=== PATIENT | female | born 1985 | race Caucasian/White ===

== ENCOUNTER 2019-12-29 05:55 | Inpatient (IN) | payer MEDICAID ==
[~2019-12-29] VITALS: Ht 157.5 cm; Wt 43.5 kg
[2019-12-29 06:00] VITALS: BP 120/80
--- NOTE | 2019-12-29 06:01 | NUR ---
PT AMBULATED TO ER BED 11
--- NOTE | 2019-12-29 06:05 | NUR ---
34 Y/O FEMALE C/O LEFT BREAST PAIN FROM MULTIPLE LUMPS WITH PAIN 8/10. PT HAS HAD THE LUMPS FOR 6 MONTHS AND PAIN GOT WORSE 4 MONTHS AGO. LEFT BREAST ENLARGED/HARD UPON PALP/-WARMTH UPON PALP. PT STATES HAD IMAGING DONE AT ANOTHER FACILITY, WITH NEGATIVE RESULTS. PT HAD A BIOPSY ON WEDNESDAY WITH NEGATIVE RESULTS. PT SEEN BY YESTERDAY AND ASPIRATION OF GREEN FLUID WAS OBTAINED FROM LEFT BREAST MASS. PT STATED REFERRED PT TO ER TO BE ADMITTED FOR OR PROCEDURE. PT DENIES ANY TRAUMA. PT STATES FINISHED AN ANTIOBIOTIC YESTERDAY . DENIES N/V/D; SKIN IS PINK/WARM/DRY; AAOX4 WITH EVEN AND STEADY GAIT; PT DENIES ANY FEVER, CP, SOB, OR COUGH AT THIS TIME; VSS; PATIENT POSITIONED FOR COMFORT; HOB ELEVATED; BEDRAILS UP X1; BED DOWN AND LOCKED. ER MD MADE AWARE OF PT STATUS. PT PLACED IN GOWN. MEDICAL HX: PT DENIES NKA
--- NOTE | 2019-12-29 06:14 | NUR ---
ERMD BEDSIDE EVALUATING PT
--- NOTE | 2019-12-29 06:40 | NUR ---
LABS DRAWN AT BEDSIDE FROM IV START AND LAB PICKED THEM UP
[2019-12-29 06:57] LABS: BASOPHILS % (AUTO) 0.4 % (0.0-2.0); EOSINOPHILS # (AUTO) 0.1 K/uL (0-0.4); HEMATOCRIT 40.3 % (36-48); HEMOGLOBIN 13.6 g/dL (12.0-16.0); LYMPHOCYTES # (AUTO) 1.8 K/uL (2.5-16.5); LYMPHOCYTES % (AUTO) 24.9 % (20.5-51.1); MEAN CORPUSCULAR HEMOGLOBIN 30 pg (27-31); MEAN CORPUSCULAR HGB CONC 34 g/dL (33-37); MEAN CORPUSCULAR VOLUME 87.7 fL (80-94); MONOCYTES # (AUTO) 0.5 K/uL (0.8-1.0); NEUTROPHILS # (AUTO) 4.8 K/uL (1.8-7.7); NEUTROPHILS % (AUTO) 66.7 % (42.2-75.2); PLATELET COUNT (AUTO) 358 K/uL (140-450); RED CELL DISTRIBUTION WIDTH 13.8 % (11.6-13.7); WHITE BLOOD COUNT (AUTO) 7.1 K/uL (4.8-10.8)
[2019-12-29 07:14] LABS: PROTHROMBIN TIME 10.6 secs (10.8-13.4)
--- NOTE | 2019-12-29 07:16 | NUR ---
Pt report given to MARINA JAMA. Transfer of care at this time.
[2019-12-29 07:18] LABS: ALBUMIN 3.6 g/dL (3.4-5.0); ANION GAP 13.1 (8-16); CARBON DIOXIDE 28.5 mmol/L (21-32); CREATININE 0.6 mg/dL (0.6-1.3); POTASSIUM 3.6 mmol/L (3.5-5.1); TOTAL BILIRUBIN 0.4 mg/dL (0.0-1.0)
--- NOTE | 2019-12-29 08:00 | NUR ---
PT RESTING IN BED COMFORTABLY. NO FURTHER NEEDS AT THIS TIME. BED AT LOWEST AND LOCKED, RAILS UP X 1.
--- NOTE | 2019-12-29 08:25 | NUR ---
PT AMBULATED TO RESTROOM TO PROVIDE URINE SAMPLE
[2019-12-29] MEDS ORDERED: ACETAMINOPHEN 325 MG TAB PO PRN (09:05)
[2019-12-29] MEDS ORDERED: FAMOTIDINE 20 MG/2 ML VIAL IV PRN (09:05)
[2019-12-29] MEDS ORDERED: HYDROcodone/APAP 5/325 MG 1 TAB TAB PO PRN ×2 (09:05→12:15)
[2019-12-29] MEDS ORDERED: MORPHINE SULFATE 2 MG/ML SYR IVP PRN (09:05)
[2019-12-29] MEDS ORDERED: DOCUSATE SODIUM 100 MG GELCAP PO PRN (09:05)
[2019-12-29] MEDS ORDERED: LORazepam 2 MG/ML VIAL IM/IVP PRN (09:05)
[2019-12-29] MEDS ORDERED: ONDANSETRON 4 MG/2 ML VIAL IM/IVP PRN (09:05)
[2019-12-29 09:25] VITALS: BP 124/79
--- NOTE | 2019-12-29 09:25 | NUR ---
RECEIVED PATIENT FROM ED NURSE FOR CONTINUITY OF CARE. PATIENT IS AAOX4. MONGOLIAN SPEAKING. RESPIRATIONS EVEN AND UNLABORED. VISIBLE CHEST RISE AND FALL NOTED. ON MEDSURG. PATIENT DENIES ANY SOB OR CHEST PAIN. ABDOMEN SOFT AND NONTENDER. NPO EXCEPT MEDICATIONS DIET. SKIN WARM, DRY, AND INTACT. DX OF LEFT BREAST ABSCESS. BREAST IS REDDENED AND HARD WITH LUMPS. PATIENT STATED SHE HAD BIOPSY A FEW DAYS AGO IN THE SAME BREAST. IV IN THE LEFT AC G 20, SALINE LOCK. IV FLUSHED WELL. NO SIGNS OF INFILTRATION. UNIVERSAL FALL PRECAUTION. AMBULATORY. BED IN LOW POSITION. CALL LIGHT IS WITHIN REACH. WILL CONTINUE TO MONITOR.
--- NOTE | 2019-12-29 09:25 | NUR ---
Patient will be admitted to care of [facility]. Admited to MS. Will go to room 105B. Belongings list completed. Report to PRINCESS GRAY.
--- NOTE | 2019-12-29 09:30 | NUR ---
MRSA NARES SWAB COLLECTED. ALLERGY BAND PLACED.
[2019-12-29] MEDS: LACTOBACILLUS RHAMNOSUS GG 1 EACH CAP PO SCH (09:43)
[2019-12-29] MEDS: NACL 0.9% 1,000 ML IV SCH ×2 (09:43→21:30)
--- NOTE | 2019-12-29 09:43 | NUR ---
HANG NS AT A RATE OF 60 ML/HR. GIVEN PROBIOTIC PO. EXPLAINED MEDICATION. PATIENT VERBALIZED UNDERSTANDING. BED IN LOW POSITION. CALL LIGHT IS WITHIN REACH. WILL CONTINUE TO MONITOR
[2019-12-29 09:48] LABS: APPEARANCE,URINE CLEAR (CLEAR); BILIRUBIN,URINE NEGATIVE (NEGATIVE); BLOOD, URINE NEGATIVE (NEGATIVE); COLOR,URINE YELLOW (YELLOW); LEUKOCYTE ESTERASE ,URINE NEGATIVE (NEGATIVE); NITRITE, URINE NEGATIVE (NEGATIVE); UGLUCOSE NEGATIVE (NEGATIVE)
[2019-12-29 10:05] LABS: BARBITURATE, URINE NEGATIVE ng/ml (NEG <=200); BENZODIAZEPINE, URINE NEGATIVE ng/mL (NEG <=200); CANNABINOID, URINE NEGATIVE ng/mL (NEG <=50); COCAINE, URINE NEGATIVE ng/mL (NEG <=300)
[2019-12-29 10:06] LABS: OPIATE, URINE NEGATIVE ng/mL (NEG <=2000); PHENCYCLIDINE SCREEN,URINE NEGATIVE ng/mL (NEG <=25)
--- NOTE | 2019-12-29 10:40 | NUR ---
PATIENT SIGNED CONSENT FOR LEFT BREAST I&D. DR. BRENNAN EXPLAINED THE RISKS AND BENEFITS TO THE PATIENT.
[2019-12-29] MEDS ORDERED: fentaNYL 0.05 MG/ML VIAL ONE (10:56)
[2019-12-29] MEDS ORDERED: ONDANSETRON 4 MG/2 ML VIAL ONE (10:56)
[2019-12-29] MEDS ORDERED: PROPOFOL 200 MG/20 ML VIAL IV ONE (10:56)
[2019-12-29] MEDS ORDERED: MIDAZOLAM 2 MG/2 ML VIAL ONE (10:56)
[2019-12-29] MEDS ORDERED: DEXAMETHASONE 4 MG/ML VIAL ONE (10:56)
[2019-12-29] MEDS ORDERED: SEVOFLURANE 250 ML BTL INH ONE (10:56)
[2019-12-29] MEDS ORDERED: LIDOCAINE 2% 100 MG/5 ML SYR IVP ONE (10:56)
[2019-12-29] MEDS ORDERED: CLINDAMYCIN 600 MG/4 ML VIAL ONE (10:57)
--- NOTE | 2019-12-29 11:00 | NUR ---
OFF UNIT TO OR FOR I&D OF LEFT BREAST
--- NOTE | 2019-12-29 11:08 | NUR ---
DISCHARGE PLANNING: THIS IS A 34 Y/O FEMALE PATIENT FROM HOME, WHO CAME IN DUE TO LEFT BREAST PAIN X 1 DAY. NO PERTINENT PAST MEDICAL HISTORY. INITIAL DIAGNOSIS OF LEFT BREAST ABSCESS. LEFT BREAST U/S SHOWED 2.9 AND 3.7 HETEROGENOUS STRUCTURE COULD REPRESENT HEMATOMA,ABSCESS OR OTHER COMPLEX CYST/MASS. SURGICAL CONSULT WITH DR. NAM FOR LEFT BREAST ABSCESS IN PLACE. ON CLINDAMYCIN. DC PLAN BACK TO HOME ONCE STABLE. Addendum: 12/29/19 at 1518 by Erika Foster CM DC PLANNING: PATIENT CAN VISIT [facility] [phone] OUT PATIENT. NOTIFIED CHARGE NURSE
[2019-12-29] MEDS: BUPIVACAINE-MPF 0.25% 30 ML VIAL INJ ONE ×2 (11:15→13:16)
[2019-12-29] MEDS ORDERED: BUPIVACAINE-MPF 0.25% 30 ML VIAL INJ ONE (11:16)
[2019-12-29 11:20] LABS: CHOL/HDL RATIO 2.7 (1-4.5); FREE T4 (FREE THYROXINE) 1.03 ng/dL (0.76-1.46); MAGNESIUM 2.1 mg/dL (1.8-2.4); PHOSPHORUS 3.2 mg/dL (2.5-4.9); THYROID STIMULATING HORMONE 2.39 uIU/mL (0.34-3.74)
[2019-12-29] MEDS ORDERED: LACTATED RINGERS 1,000 ML IV SCH (11:37)
[2019-12-29] MEDS ORDERED: HYDROmorphone 1 MG/ML AMP IVP PRN ×2 (11:40→12:15)
[2019-12-29] MEDS ORDERED: MEPERIDINE 25 MG/ML SYR IVP PRN (11:40)
[2019-12-29] MEDS ORDERED: ONDANSETRON 4 MG/2 ML VIAL IVP PRN (11:40)
--- NOTE | 2019-12-29 12:50 | NUR ---
PATIENT RETURNED TO UNIT FROM OR. POST-OP VITALS WILL BE CHECKED
[2019-12-29] MEDS: CLINDAMYCIN 600 MG in DEXTROSE 5% 50 ML IV SCH ×2 (13:10→20:12)
--- NOTE | 2019-12-29 13:15 | NUR ---
HANG CLINDAMYCIN IVPB. EXPLAINED MEDICATION. WILL CONTINUE TO MONITOR.
--- NOTE | 2019-12-29 13:36 | NUR ---
PRIMARY RN CONTINUE TO TEACH WOUND CARE WOUND CARE INSTRUCTIONS FOR S/P I&D LEFT BREAST -PRE-MEDICATED FOR PAIN BEFORE DRESSING CHANGE. -HAND WASHING BEFORE AND AFTER DRESSING CHANGE -REMOVE ABDOMINAL DRESSING AND SOAKED PACKED GAUZES TO WOUND BED WITH NORMAL SALINE(NS) AND REMOVE OLD SOAKED DRESSING. -RINSE LEFT BREAST SURGICAL WOUND WITH NS, PAT DRY, FOLLOWED BY PACKING WITH MOIST NORMAL SALINE FULL ROLL OF KERLIX RAMON, AND COVER WITH DRY ABDOMINAL PAD, SECURE WITH TAPE CHANGE QD AND PRN IF SOILING. -FOLLOW UP WITH SURGEON IN 7 DAYS -MAY DISCHARGE WITH WOUND CARE SUPPLIES Addendum: 12/29/19 at 1401 by Abbe Ellison (Grace) RN ALL ABOVE INFORMATION INSTRUCTED TO PT. AND WRITTEN INSTRUCTIONS WILL BE PROVIDED AT THE TIME OF DISCHARGE,PT. VERBALIZES UNDERSTANDING. DR. BRENNAN NOTIFIED ALL ABOVE INFORMATION.
--- NOTE | 2019-12-29 14:25 | NUR ---
PATIENT HAS BEEN SCREENED AND CATEGORIZED LOW NUTRITION RISK. PATIENT WILL BE SEEN WITHIN 7 DAYS OF ADMISSION. 01/04/[address]
--- NOTE | 2019-12-29 14:28 | NUR ---
PATIENT IS SLEEPING AT THIS TIME BUT OPEN EYES WHEN NAME IS CALLED. BED IN LOW POSITION. CALL LIGHT IS WITHIN REACH. WILL CONTINUE TO MONITOR.
[2019-12-29] MEDS: MORPHINE SULFATE 4 MG/ML SYR IV PRN (14:39)
--- NOTE | 2019-12-29 14:39 | NUR ---
GIVEN MORPHINE FOR 6/10 LEFT BREAST PAIN. EXPLAINED MEDICATION. RESPIRATIONS 16. GIVEN 2 APPLE JUICE BOXES. BED IN LOW POSITION. CALL LIGHT IS WITHIN REACH. WILL CONTINUE TO MONITOR.
--- NOTE | 2019-12-29 15:39 | NUR ---
PAIN REASSESSED. PATIENT STATED 0/10 PAIN. WILL CONTINUE TO MONITOR
--- NOTE | 2019-12-29 15:46 | NUR ---
GIVEN TURKEY SANDWICH AND APPLE JUICE TO THE PATIENT.
[2019-12-29 16:00] VITALS: BP 120/75
--- NOTE | 2019-12-29 16:35 | NUR ---
PATIENT TOLERATED TURKEY SANDWICH. DENIES N/V
--- NOTE | 2019-12-29 17:42 | NUR ---
PATIENT IS AWAKE, WATCHING TV. DENIES PAIN. BED IN LOW POSITION. CALL LIGHT IS WITHIN REACH. WILL CONTINUE TO MONITOR
--- NOTE | 2019-12-29 17:58 | NUR ---
GIVEN INCENTIVE SPIROMETER EDUCATION. PATIENT DEMONSTRATED WELL. VERBALIZED UNDERSTANDING THAT SHE HAS TO USE IT 10X PER HOUR.
--- NOTE | 2019-12-29 18:21 | NUR ---
PATIENT IS EATING DINNER AT THIS TIME.
--- NOTE | 2019-12-29 19:18 | NUR ---
ENDORSED PATIENT TO THE NURSE SHIFT NURSE FOR CONTINUITY OF CARE. PATIENT IS IN STABLE CONDITION.
--- NOTE | 2019-12-29 19:19 | NUR ---
RECEIVED PATIENT IN STABLE CONDITION FROM AM SHIFT NURSE FOR CONTINUITY OF CARE. RESPIRATIONS EVEN, UNLABORED. SKIN WARM/DRY. DRESSING ON LEFT BREAST CLEAN/DRY AND INTACT. IV SITE TO LEFT AC 20G PATENT/INTACT, INFUSING FLUIDS WELL. NO C/O PAIN. NO S/SX ACUTE DISTRESS. CALL LIGHT WITHIN REACH. WILL CONTINUE TO MONITOR.
--- NOTE | 2019-12-29 21:10 | NUR ---
PATIENT CONTINUES IN STABLE CONDITION. NO C/O PAIN. NO S/SX ACUTE DISTRESS. CALL LIGHT WITHIN REACH. WILL CONTINUE TO MONITOR.
--- NOTE | 2019-12-29 23:06 | NUR ---
MADE ROUNDS. PATIENT IS ASLEEP AND IN STABLE CONDITION. NO C/O PAIN. NO S/SX ACUTE DISTRESS. CALL LIGHT WITHIN REACH. WILL CONTINUE TO MONITOR.
[2019-12-30] VITALS: BP 101/65
--- NOTE | 2019-12-30 00:37 | NUR ---
ASSISTED PATIENT TO RESTROOM. NO S/SX ACUTE DISTRESS. ENCOURAGED REPOSITIONING TOLERATED. PAIN LEVEL 2/10, TOLERABLE AT THIS TIME. CALL LIGHT WITHIN REACH. WILL CONTINUE TO MONITOR.
--- NOTE | 2019-12-30 02:44 | NUR ---
PATIENT IS ASLEEP AND RESTING IN BED COMFORTABLY. NO C/O PAIN. NO S/SX ACUTE DISTRESS. CALL LIGHT WITHIN REACH. WILL CONTINUE TO MONITOR.
--- NOTE | 2019-12-30 04:17 | NUR ---
PATIENT CONTINUES IN STABLE CONDITION. NO C/O PAIN. NO S/SX ACUTE DISTRESS. CALL LIGHT WITHIN REACH. WILL CONTINUE TO MONITOR.
[2019-12-30] MEDS: CLINDAMYCIN 600 MG in DEXTROSE 5% 50 ML IV SCH ×3 (04:52→20:07)
--- NOTE | 2019-12-30 05:28 | NUR ---
PATIENT C/O ACHING LEFT BREAST PAIN 02/27. MEDICATED ORDERED. CALL LIGHT WITHIN REACH. WILL CONTINUE TO MONITOR.
--- NOTE | 2019-12-30 06:28 | NUR ---
REASSESSED PATIENT'S PAIN LEVEL AT 0/10. PATIENT IS ASLEEP. NO S/SX ACUTE DISTRESS. CALL LIGHT WITHIN REACH. WILL CONTINUE TO MONITOR.
--- NOTE | 2019-12-30 07:00 | NUR ---
WILL ENDORSE PATIENT TO AM SHIFT NURSE IN STABLE CONDITION FOR CONTINUITY OF CARE.
[2019-12-30 07:05] LABS: BASOPHILS % (AUTO) 0.2 % (0.0-2.0); EOSINOPHILS % (AUTO) 0.2 % (0.0-4.0); HEMATOCRIT 34.2 % (36-48); HEMOGLOBIN 11.4 g/dL (12.0-16.0); LYMPHOCYTES # (AUTO) 2.5 K/uL (2.5-16.5); LYMPHOCYTES % (AUTO) 17.9 % (20.5-51.1); MEAN CORPUSCULAR HEMOGLOBIN 30 pg (27-31); MEAN CORPUSCULAR HGB CONC 33 g/dL (33-37); MEAN CORPUSCULAR VOLUME 88.5 fL (80-94); MONOCYTES # (AUTO) 1.2 K/uL (0.8-1.0); MONOCYTES % (AUTO) 8.5 % (1.7-9.3); NEUTROPHILS # (AUTO) 10.2 K/uL (1.8-7.7); NEUTROPHILS % (AUTO) 73.2 % (42.2-75.2); PLATELET COUNT (AUTO) 304 K/uL (140-450); RED BLOOD CELL COUNT(AUTO) 3.86 MIL/uL (4.20-5.40); RED CELL DISTRIBUTION WIDTH 13.5 % (11.6-13.7); WHITE BLOOD COUNT (AUTO) 13.9 K/uL (4.8-10.8)
--- NOTE | 2019-12-30 07:05 | NUR ---
RECEIVED PT FROM DATA PROCESSING MECHANIC NURSE. PT IS CURRENTLY ALERT, AWAKE, AND LAYING IN BED WITH NO SIGNS OF DISTRESS NOTED. SKIN IS INTACT MINUS LEFT BREAST SURGICAL WOUND. IV IS ASYMPTOMATIC, PATENT AND INFUSING PER ORDER. RESPIRATIONS ARE EVEN AND UNLABORED WITH VISIBLE CHEST RISE AND FALL, ROOM AIR. INCENTIVE SPIROMETER IS AT BEDSIDE. SAFETY MEASURES IN PLACE, CALL LIGHT WITHIN REACH AND WILL CONTINUE TO MONITOR.
[2019-12-30 07:32] LABS: ANION GAP 13.4 (8-16); CARBON DIOXIDE 24.9 mmol/L (21-32); CREATININE 0.6 mg/dL (0.6-1.3); POTASSIUM 3.3 mmol/L (3.5-5.1)
[2019-12-30 07:38] LABS: MAGNESIUM 1.7 mg/dL (1.8-2.4); PHOSPHORUS 3.5 mg/dL (2.5-4.9)
[2019-12-30 08:00] VITALS: BP 103/64
[2019-12-30] MEDS: MORPHINE SULFATE 4 MG/ML SYR IV PRN (08:50)
[2019-12-30] MEDS: NACL 0.9% 1,000 ML IV SCH ×2 (09:16→20:07)
[2019-12-30] MEDS: LACTOBACILLUS RHAMNOSUS GG 1 EACH CAP PO SCH (09:32)
[2019-12-30] MEDS: oxyCODONE/APAP 5/325 MG 1 TAB TAB PO PRN ×2 (09:33→17:07)
--- NOTE | 2019-12-30 09:35 | NUR ---
DR. Mercer COMPLETED DRESSING CHANGE AND REQUESTED FOR PATIENT TO BE PREMEDICATED WITH MORPHINE FOR WOUND PACKING. REQUESTED FOR PT RECEIVE PERCOCET DUE TO PAIN LEVEL. OTHER MEDICATIONS ADMINISTERED PER ORDER AND TOLERATED WELL. PAIN IS CURRENTLY AT 10/10 PER PATIENT. WILL REASSESS IN ONE HOUR.
[2019-12-30] MEDS ORDERED: POTASSIUM CHLORIDE 10 MEQ TABER PO SCH (11:00)
[2019-12-30] MEDS ORDERED: MAG SULF 2000 MG/WATER PREMIX 50 ML IV SCH (11:15)
--- NOTE | 2019-12-30 11:23 | NUR ---
PT IS CURRENTLY ALERT,AWAKE, AND LAYING IN BED. MEDICATIONS ADMINISTERED PER ORDER AND TOLERATED WELL. SAFETY MEASURES IN PLACE AND WILL CONTINUE TO MONITOR.
--- NOTE | 2019-12-30 13:13 | NUR ---
PT IS CURRENTLY EATING LUNCH AT BEDSIDE WITH NO SIGNS OF DISTRESS. MEDICATIONS WERE ADMINISTERED PER ORDER AND TOLERATED WELL. SAFETY MEASURES IN PLACE AND WILL CONTINUE TO MONITOR.
--- NOTE | 2019-12-30 15:23 | NUR ---
PT IS CURRENTLY ALERT AWAKE, AND WATCHING TV IN BED. NO SIGNS OF DISTRESS OR COMPLAINTS OF PAIN AT THIS TIME. SAFETY MEASURES IN PLACE AND WILL CONTINUE TO MONITOR.
[2019-12-30 16:00] VITALS: BP 109/67
--- NOTE | 2019-12-30 17:08 | NUR ---
ADMINISTERED PAIN MEDICATION FOR PAIN OF 5 IN THE LEFT BREAST. WILL REASSESS.
--- NOTE | 2019-12-30 19:05 | NUR ---
ENDORSED TO C2 TACTICAL ANALYSIS TECHNICIAN NURSE. PT IS AWAKE ALERT AND LAYING IN BED WITH NO COMPLAINTS OF PAIN. PT IS IN STABLE CONDITION.
--- NOTE | 2019-12-30 20:00 | NUR ---
ASSISTED PATIENT TO BATHROOM. VOIDED WELL. NO C/O PAIN. NO S/SX ACUTE DISTRESS. CALL LIGHT WITHIN REACH. WILL CONTINUE TO MONITOR.
--- NOTE | 2019-12-30 22:00 | NUR ---
PATIENT IS ON HER CELL PHONE WITH HER FAMILY. NO C/O PAIN. NO S/SX ACUTE DISTRESS. CALL LIGHT WITHIN REACH. WILL CONTINUE TO MONITOR.
[2019-12-31] VITALS: BP 97/51
[2019-12-31] MEDS: oxyCODONE/APAP 5/325 MG 1 TAB TAB PO PRN ×2 (00:04→08:47)
--- NOTE | 2019-12-31 00:04 | NUR ---
PATIENT C/O ACHING LEFT BREAST PAIN 02/27. MEDICATED ORDERED. REPOSITIONED FOR COMFORT. CALL LIGHT WITHIN REACH. WILL CONTINUE TO MONITOR.
--- NOTE | 2019-12-31 01:04 | NUR ---
REASSESSED PAIN LEVEL AT 0/10. PATIENT IS ASLEEP. NO S/SX ACUTE DISTRESS. CALL LIGHT WITHIN REACH. WILL CONTINUE TO MONITOR.
--- NOTE | 2019-12-31 03:00 | NUR ---
PATIENT IS ASLEEP AND IN STABLE CONDITION. NO C/O PAIN. NO S/SX ACUTE DISTRESS. CALL LIGHT WITHIN REACH. WILL CONTINUE TO MONITOR.
[2019-12-31] MEDS: CLINDAMYCIN 600 MG in DEXTROSE 5% 50 ML IV SCH (04:00)
--- NOTE | 2019-12-31 05:00 | NUR ---
PATIENT CONTINUES IN STABLE CONDITION. NO C/O PAIN. NO S/SX ACUTE DISTRESS. CALL LIGHT WITHIN REACH. WILL CONTINUE TO MONITOR.
[2019-12-31] MEDS: MORPHINE SULFATE 2 MG/ML SYR IVP PRN ×2 (05:23→10:30)
--- NOTE | 2019-12-31 05:23 | NUR ---
PATIENT C/O ACHING LEFT BREAST PAIN 11/27. MEDICATED ORDERED. CALL LIGHT WITHIN REACH. WILL CONTINUE TO MONITOR.
[2019-12-31 06:18] LABS: BASOPHILS % (AUTO) 0.2 % (0.0-2.0); EOSINOPHILS # (AUTO) 0.1 K/uL (0-0.4); EOSINOPHILS % (AUTO) 0.6 % (0.0-4.0); HEMATOCRIT 34.2 % (36-48); HEMOGLOBIN 11.4 g/dL (12.0-16.0); LYMPHOCYTES # (AUTO) 1.9 K/uL (2.5-16.5); LYMPHOCYTES % (AUTO) 16.5 % (20.5-51.1); MEAN CORPUSCULAR HEMOGLOBIN 30 pg (27-31); MEAN CORPUSCULAR HGB CONC 34 g/dL (33-37); MEAN CORPUSCULAR VOLUME 88.3 fL (80-94); MONOCYTES # (AUTO) 1.3 K/uL (0.8-1.0); MONOCYTES % (AUTO) 11.5 % (1.7-9.3); NEUTROPHILS # (AUTO) 8.3 K/uL (1.8-7.7); NEUTROPHILS % (AUTO) 71.2 % (42.2-75.2); PLATELET COUNT (AUTO) 288 K/uL (140-450); RED BLOOD CELL COUNT(AUTO) 3.87 MIL/uL (4.20-5.40); RED CELL DISTRIBUTION WIDTH 13.6 % (11.6-13.7); WHITE BLOOD COUNT (AUTO) 11.6 K/uL (4.8-10.8)
--- NOTE | 2019-12-31 07:00 | NUR ---
RECEIVED PT FROM STOCK CHASER NURSE. PT IS CURRENTLY SLEEPING WITH NO SIGNS OF DISTRESS NOTED. RESPIRATIONS ARE EVEN AND UNLABORED ON ROOM AIR WITH VISIBLE CHEST RISE AND FALL. IV IS PATENT ASYMPTOMATIC AND INFUSING PER ORDER. BED IS IN LOW, SEMI FOWLERS POSITION WITH CALL LIGHT IN REACH. SAFETY MEASURES IN PLACE AND WILL CONTINUE TO MONITOR.
--- NOTE | 2019-12-31 07:04 | NUR ---
ENDORSED PATIENT IN STABLE CONDITION TO AM SHIFT NURSE FOR CONTINUITY OF CARE.
[2019-12-31 07:28] LABS: ANION GAP 11.2 (8-16); CARBON DIOXIDE 28.5 mmol/L (21-32); CREATININE 0.7 mg/dL (0.6-1.3); POTASSIUM 3.7 mmol/L (3.5-5.1)
[2019-12-31 07:33] LABS: PHOSPHORUS 3.4 mg/dL (2.5-4.9)
[2019-12-31] MEDS: LACTOBACILLUS RHAMNOSUS GG 1 EACH CAP PO SCH (08:36)
[2019-12-31] MEDS: NACL 0.9% 1,000 ML IV SCH (08:38)
--- NOTE | 2019-12-31 08:49 | NUR ---
MEDICATIONS ADMINISTERED PER ORDER AND TOLERATED WELL. PHYSICIAN MIKA CAME AND SPOKE TO THE PATIENT. PT STATED THAT SHE WAS IN PAIN. PHYSICIAN ORDERED TO GIVE PATIENT PERCOCET AND REASSESS PAIN IN ONE HOUR.
--- NOTE | 2019-12-31 09:49 | NUR ---
PT IS CURRENTLY AWAKE, ALERT AND LAYING IN BED. PT STATES THAT PAIN HAS REDUCED TO A 3/10 PAIN. SAFETY MEASURES IN PLACE AND WILL CONTINUE TO MONITOR.
--- NOTE | 2019-12-31 10:40 | NUR ---
DR. MACIAS CAME TO SEE PT AND CHANGED WOUND PACKING. PT WAS SCREAMING DURING WOUND PACKING AND ORDERED THAT MORPHINE BE GIVEN. DR. MACIAS INSTRUCTED PT TO SET UP AN APPOINTMENT WITH FOR 01/01/2020. PT VERBALIZED UNDERSTANDING. MORPHINE WAS ADMINISTERED AND WILL REASSESS PAIN IN ONE HOUR.
--- NOTE | 2019-12-31 11:40 | NUR ---
PT IS ALERT AND LAYING IN BED WITH NO SIGNS OF DISTRESS NOTED. PT CURRENTLY STATES THAT PAIN HAS REDUCED TOP 4/10. PT HAS BEEN CLEARED FOR DISCHARGE AND WILL BE SENT HOME TODAY. SAFETY MEASURES I NPLACE AND WILL CONTINUE TO MONITOR.
[2019-12-31] MEDS ORDERED: CLIN300C2 PO (11:47)
[2019-12-31 12:43] VITALS: BP 103/66
--- NOTE | 2019-12-31 13:10 | NUR ---
PT IS CURRENTLY SITTING AT BEDSIDE. PT WAS NOTIFIED THAT SHE WILL BE GOING HOME TODAY AROUND TWO PM. SAFETY MEASURES ION PLACE AND WILL CONTINUE TO MONITOR.
--- NOTE | 2019-12-31 13:55 | NUR ---
PT WAS ESCORTED OFF THE UNIT BY FOOT AT 1350 TO HER HOME. PT SHOWED NO SIGNS OF DISTRESS AND REPORTED PAIN AT A TOLERABLE LEVEL OF 3/10. RESPIRATIONS WERE CLEARED AND UNLABORED ON ROOM AIR. IV WAS TAKEN OUT WITH LUMEN INTACT AND MINIMAL BLOOD LOSS. ID BANDS WERE REMOVED. DISCHARGE MD FOLLOW UP, DISCHARGE INSTRUCTIONS, AND MEDICATION TEACHING GIVEN. PT VERBALIZED UNDERSTANDING AND NO FURTHER QUESTIONS WERE ASKED.
[2019-12-31] MEDS ORDERED: LACT10CA1 PO (14:38)
[2020-01-02] MEDS ORDERED: SULF-59 PO (14:05)
== END 2019-12-31 13:50 | disposition home or self-care (01) | DRG 385 ==
LOC: MED 05:55 → MTU 08:40
PROVIDERS: ADMIT General Practice; ATTEND General Practice
PROC: 0JB60ZZ Excision of Chest Subcutaneous Tissue and Fascia, Open Approach (ICD-10-PCS; principal; 2019-12-29 11:00)
DX: N61.1 Abscess of the breast and nipple (principal); E83.42 Hypomagnesemia; E78.5 Hyperlipidemia, unspecified; E87.6 Hypokalemia; N64.4 Mastodynia; Z88.0 Allergy status to penicillin; Z98.891 History of uterine scar from previous surgery
CPT/HCPCS: 36415; 71045; 76641; 80048; 80053; 80305; 81003; 81025; 82150; 83036; 83605; 83615; 83690; 83735; 83880; 84100; 84439; 84443; 84484; 85025; 85610; 86886; 86900; 86901; 87070; 87075; 87081; 87186; 87205; 99285; J1100; J2001; J2175; J2250; J2270; J2405; J2704; J3010; J3475; J3490; J7030; J7060; Q0092

== ENCOUNTER 2020-02-13 06:19 | Observation (INO) | payer MEDICAID ==
[~2020-02-13] VITALS: Ht 157.5 cm; Wt 42.2 kg
[~2020-02-13 06:19] MED LIST: CLIN300C2 PO; LACT10CA1 PO; SULF-59 PO
[2020-02-13 06:26] VITALS: BP 117/78
--- NOTE | 2020-02-13 06:27 | NUR ---
PT TAKEN TO BED 7
--- NOTE | 2020-02-13 06:30 | NUR ---
34 YEAR OLD FEMALE COMPLAINS OF LEFT BREAST ABSCESS. PT STATES THAT HER DOCTOR CALLED HER REGARDING HER RESULTS FOR AN ULTRASOUND DONE ON WEDNESDAY THAT IT INDICATED LEFT BREAST ABSCESS AND TO FOLLOW UP TODAY. PT AOX4, BREATHING EVEN AND UNLABORED, SKIN WARM AND DRY. BED IN LOWEST POSITION, LOCKED, BED RAIL UPX1. PMH - DENIES ALLERGIES - NKA
[2020-02-13 07:03] LABS: BASOPHILS % (AUTO) 0.4 % (0.0-2.0); EOSINOPHILS # (AUTO) 0.1 K/uL (0-0.4); EOSINOPHILS % (AUTO) 1.7 % (0.0-4.0); HEMATOCRIT 43.4 % (36-48); HEMOGLOBIN 14.4 g/dL (12.0-16.0); LYMPHOCYTES % (AUTO) 32.5 % (20.5-51.1); MEAN CORPUSCULAR HEMOGLOBIN 30 pg (27-31); MEAN CORPUSCULAR HGB CONC 33 g/dL (33-37); MEAN CORPUSCULAR VOLUME 89.4 fL (80-94); MONOCYTES # (AUTO) 0.5 K/uL (0.8-1.0); MONOCYTES % (AUTO) 8.1 % (1.7-9.3); NEUTROPHILS # (AUTO) 3.6 K/uL (1.8-7.7); NEUTROPHILS % (AUTO) 57.3 % (42.2-75.2); PLATELET COUNT (AUTO) 352 K/uL (140-450); RED BLOOD CELL COUNT(AUTO) 4.85 MIL/uL (4.20-5.40); RED CELL DISTRIBUTION WIDTH 13.7 % (11.6-13.7); WHITE BLOOD COUNT (AUTO) 6.2 K/uL (4.8-10.8)
--- NOTE | 2020-02-13 07:09 | NUR ---
Dr. Roa examining patient.
--- NOTE | 2020-02-13 07:11 | NUR ---
X-Ray at bedside.
--- NOTE | 2020-02-13 07:12 | NUR ---
REPORT GIVEN TO KATHARINA GRAY AND SRINIVAS GRAY, TRANSFER OF CARE AT THIS TIME
--- NOTE | 2020-02-13 07:29 | NUR ---
PT RESTING AT BEDSIDE. VS STABLE. DR. ZAYAS ASSESSED PT AT 0715.
[2020-02-13 07:30] LABS: ALBUMIN 4.1 g/dL (3.4-5.0); ANION GAP 15.1 (8-16); CARBON DIOXIDE 26.2 mmol/L (21-32); CREATININE 0.7 mg/dL (0.6-1.3); POTASSIUM 3.3 mmol/L (3.5-5.1); TOTAL BILIRUBIN 0.3 mg/dL (0.0-1.0)
--- NOTE | 2020-02-13 07:52 | NUR ---
DR ZAYAS MADE AWARE OF LOW K. PT AMBULATED TO RESTROOM.
[2020-02-13] MEDS ORDERED: ACETAMINOPHEN 325 MG TAB PO PRN (08:00)
[2020-02-13] MEDS ORDERED: ONDANSETRON 4 MG/2 ML VIAL IM/IVP PRN (08:00)
[2020-02-13] MEDS ORDERED: NACL 0.9% 1,000 ML IV SCH (08:00)
[2020-02-13] MEDS ORDERED: MORPHINE SULFATE 2 MG/ML SYR IVP PRN (08:00)
[2020-02-13] MEDS ORDERED: HYDROcodone/APAP 7.5/325 MG 1 TAB PO PRN (08:00)
[2020-02-13] MEDS ORDERED: DOCUSATE SODIUM 100 MG GELCAP PO PRN (08:00)
--- NOTE | 2020-02-13 08:08 | NUR ---
PT VOIDED. URINE COLLECTED AND SENT TO LAB.
--- NOTE | 2020-02-13 08:09 | NUR ---
PT AMBULATED TO BED AFTER VOIDING.
--- NOTE | 2020-02-13 08:18 | NUR ---
COVID 19 SWAB COLLECTED AND WALKED TO LAB.
[2020-02-13 08:20] LABS: BILIRUBIN,URINE NEGATIVE (NEGATIVE); BLOOD, URINE NEGATIVE (NEGATIVE); LEUKOCYTE ESTERASE ,URINE NEGATIVE (NEGATIVE); NITRITE, URINE NEGATIVE (NEGATIVE); PH,URINE 5.5 (5.0-9.0); UGLUCOSE NEGATIVE (NEGATIVE)
[2020-02-13 08:32] LABS: PROTHROMBIN TIME 10.3 secs (10.8-13.4)
[2020-02-13 08:37] LABS: MAGNESIUM 1.9 mg/dL (1.8-2.4); PHOSPHORUS 3.7 mg/dL (2.5-4.9); THYROID STIMULATING HORMONE 2.91 uIU/mL (0.34-3.74)
[2020-02-13 08:42] LABS: APPEARANCE,URINE CLEAR (CLEAR); COLOR,URINE YELLOW (YELLOW)
[2020-02-13 08:43] LABS: BARBITURATE, URINE NEGATIVE ng/ml (NEG <=200); BENZODIAZEPINE, URINE NEGATIVE ng/mL (NEG <=200); CANNABINOID, URINE NEGATIVE ng/mL (NEG <=50); COCAINE, URINE NEGATIVE ng/mL (NEG <=300); OPIATE, URINE NEGATIVE ng/mL (NEG <=2000); PHENCYCLIDINE SCREEN,URINE NEGATIVE ng/mL (NEG <=25)
--- NOTE | 2020-02-13 09:25 | NUR ---
PATIENT ARRIVED FROM ED VIA W/C. REPORT GIVEN BY MARINA ESPINO. PATIENT IS ALERT AND ORIENTED X4. INTRODUCED SELF. PLANS OF CARE DISCUSSED. DX: LT BREAST ABSCESS. LT BREAST INCISIONS HEALED, INTACT SURGERY FROM DECEMBER 2019, NO DRAINAGE NOTED. PATIENT IS NPO. IV INTACT AND PATENT TO RIGHT AC. DR. NAM TO SEE PATIENT. CALL LIGHT WITHIN REACH.
--- NOTE | 2020-02-13 09:31 | NUR ---
Pt transferred to Med/Surg via WHEEL CHAIR ROOM 115A. REPORT GIVEN TO MARINA EVANGELISTA.
[2020-02-13 09:40] VITALS: BP 121/78
--- NOTE | 2020-02-13 10:05 | NUR ---
DR. NAM AND DR. COSME AT BEDSIDE.
[2020-02-13] MEDS ORDERED: DYN250 PO (10:13)
[2020-02-13] MEDS ORDERED: HYDR-5122 PO (10:15)
[2020-02-13] MEDS ORDERED: BUPIVACAINE-MPF 0.25% 30 ML VIAL INJ ONE (10:29)
[2020-02-13] MEDS ORDERED: fentaNYL 0.05 MG/ML VIAL ONE (10:39)
[2020-02-13] MEDS ORDERED: LEVOFLOXACIN 750 MG/D5W PREMIX 150 ML IV SCH (11:00)
[2020-02-13] MEDS ORDERED: LEVOFLOXACIN 500 MG/D5W PREMIX 100 ML IV SCH (11:00)
--- NOTE | 2020-02-13 13:50 | NUR ---
DR. NAM AT BEDSIDE. PER DR. NAM HE WILL NOT DO PROCEDURE TODAY, HE WILL EXPLAIN TO PATIENT.
--- NOTE | 2020-02-13 15:00 | NUR ---
PATIENT IS ALERT AND ORIENTED X4. NO S/S OF DISTRESS NOTED. CALL LIGHT WITHIN REACH. DR. COSME AT BEDSIDE.
[2020-02-13] MEDS ORDERED: CIPR500T4 PO (15:27)
[2020-02-13] MEDS ORDERED: POTASSIUM CHLORIDE 10 MEQ TABER PO SCH (15:29)
--- NOTE | 2020-02-13 17:40 | NUR ---
PATIENT AMBULATED WITH STEADY GAIT TO [facility]. PATIENT IS DISCHARGED TO HOME, PICKED UP BY HER VIA PRIVATE VEHICLE. DISCHARGE INSTRUCTIONS PROVIDED AND ALL BELONGINGS SIGNED FOR. PATIENT VERBALIZED UNDERSTANDING. IV REMOVED, CANNULA INTACT, BLEEDING CONTROLLED. ID BAND REMOVED.
== END 2020-02-13 17:40 | disposition home or self-care (01) ==
LOC: MED 06:19 → MTU 08:03 → INTOOBSV 08:03
PROVIDERS: ADMIT General Practice; ATTEND General Practice
DX: Z03.818 Encounter for observation for suspected exposure to other biological agents ruled out (principal); N61.1 Abscess of the breast and nipple; E87.6 Hypokalemia; Z88.0 Allergy status to penicillin
CPT/HCPCS: 36415; 71045; 76641; 80053; 80305; 81003; 81025; 83036; 83605; 83735; 84100; 84443; 85025; 85610; 85730; 87040; 87081; 87086; 96365; 99285; G0378; J1956; J3010; J3490; J7030; Q0092; U0003

== ENCOUNTER 2020-03-05 06:55 | Inpatient (IN) | payer MEDICAID, SELFPAY ==
[~2020-03-05] VITALS: Ht 157.5 cm; Wt 43.5 kg
[~2020-03-05 06:55] MED LIST changes: +CIPR500T4 PO; -CLIN300C2 PO; +HYDR-5122 PO; -LACT10CA1 PO; -SULF-59 PO
[2020-03-05 07:00] VITALS: BP 120/79
--- NOTE | 2020-03-05 07:04 | NUR ---
PT AMBULATED TO BED 06 WITH STEADY GAIT.
--- NOTE | 2020-03-05 07:05 | NUR ---
Dr. Roa is evaluating the patient at bedside.
--- NOTE | 2020-03-05 07:05 | NUR ---
C/O L BREAST DISCOMFORT/"HEAVINESS" 11/27 X 1 MONTH. PT HAD ABCESS DRAINAGE @ [facility] 12/29/19 AND WAS SEEN AGAIN 02/13/20 FOR THE SAME ISSUE AND WAS TREATED WITH ABX. INCISIONS ARE C/D/I. DENIES FEVER. PT STATES THE L BREAST STILL FEELS "HEAVY" AND FIRM TOWARDS THE BOTTOM. PT PROVIDED WITH GOWN AND BLANKET
--- NOTE | 2020-03-05 07:45 | NUR ---
Dr. Michael Cedillo agreed to serve as the surgical consult.
[2020-03-05 07:51] LABS: BASOPHILS % (AUTO) 0.3 % (0.0-2.0); EOSINOPHILS # (AUTO) 0.1 K/uL (0-0.4); EOSINOPHILS % (AUTO) 1.5 % (0.0-4.0); HEMATOCRIT 43.8 % (36-48); HEMOGLOBIN 14.5 g/dL (12.0-16.0); LYMPHOCYTES # (AUTO) 1.9 K/uL (2.5-16.5); LYMPHOCYTES % (AUTO) 30.3 % (20.5-51.1); MEAN CORPUSCULAR HEMOGLOBIN 29 pg (27-31); MEAN CORPUSCULAR HGB CONC 33 g/dL (33-37); MEAN CORPUSCULAR VOLUME 88.7 fL (80-94); MONOCYTES # (AUTO) 0.4 K/uL (0.8-1.0); NEUTROPHILS # (AUTO) 3.8 K/uL (1.8-7.7); NEUTROPHILS % (AUTO) 61.9 % (42.2-75.2); PLATELET COUNT (AUTO) 320 K/uL (140-450); RED BLOOD CELL COUNT(AUTO) 4.94 MIL/uL (4.20-5.40); RED CELL DISTRIBUTION WIDTH 13.5 % (11.6-13.7); WHITE BLOOD COUNT (AUTO) 6.2 K/uL (4.8-10.8)
[2020-03-05] MEDS ORDERED: MORPHINE SULFATE 2 MG/ML SYR IVP PRN ×2 (07:55→20:50)
[2020-03-05] MEDS ORDERED: DOCUSATE SODIUM 100 MG GELCAP PO PRN (07:55)
[2020-03-05] MEDS ORDERED: ONDANSETRON 4 MG/2 ML VIAL IM/IVP PRN (07:55)
[2020-03-05] MEDS ORDERED: HYDROcodone/APAP 5/325 MG 1 TAB TAB PO PRN (07:55)
[2020-03-05] MEDS ORDERED: LORazepam 2 MG/ML VIAL IM/IVP PRN (07:55)
[2020-03-05] MEDS ORDERED: ACETAMINOPHEN 325 MG TAB PO PRN ×2 (07:55→20:50)
[2020-03-05 08:31] LABS: APPEARANCE,URINE CLEAR (CLEAR); BILIRUBIN,URINE NEGATIVE (NEGATIVE); BLOOD, URINE NEGATIVE (NEGATIVE); COLOR,URINE YELLOW (YELLOW); LEUKOCYTE ESTERASE ,URINE NEGATIVE (NEGATIVE); NITRITE, URINE NEGATIVE (NEGATIVE); PH,URINE 5.5 (5.0-9.0); UGLUCOSE NEGATIVE (NEGATIVE)
[2020-03-05 08:35] VITALS: BP 114/72
--- NOTE | 2020-03-05 08:35 | NUR ---
RECEIVED PT FROM ED NURSE VIA MARIN. PT AMBULATED TO BED WITHOUT ASSISTANCE NEEDED. RESPIRATIONS ARE CLEAR AND UNLABORED ON ROOM AIR WITH NO SIGNS OF DISTRESS. SKIN IS INTACT WITH IV ASYMPTOMATIC PATENT. PT COMPLAINS OF LEFT BREAST PAIN BUT IT IS AT TOLERABLE LEVEL. VITAL SIGNS ARE WITHIN NORMAL RANGE. PT IS ALERT, ORIENTATED TIMES FOUR. SAFETY MEASURES IN PLACE AND WILL CONTINUE TO MONITOR.
[2020-03-05 08:41] LABS: ANION GAP 14.4 (8-16); CARBON DIOXIDE 25.1 mmol/L (21-32); CREATININE 0.6 mg/dL (0.6-1.3); POTASSIUM 3.5 mmol/L (3.5-5.1); TOTAL BILIRUBIN 0.3 mg/dL (0.0-1.0)
--- NOTE | 2020-03-05 08:43 | NUR ---
Patient will be admitted to care of dr. ugalde. Admited to med surg. Will go to room 105B. Belongings list completed. Report to MARINA Ng.
[2020-03-05 08:45] LABS: MAGNESIUM 2.1 mg/dL (1.8-2.4); PHOSPHORUS 3.2 mg/dL (2.5-4.9)
[2020-03-05 08:46] LABS: THYROID STIMULATING HORMONE 2.39 uIU/mL (0.34-3.74)
[2020-03-05] MEDS: NACL 0.9% 1,000 ML IV SCH (08:50)
[2020-03-05 08:51] LABS: PROTHROMBIN TIME 10.1 secs (10.8-13.4)
--- NOTE | 2020-03-05 09:00 | NUR ---
PT WILL BE NPO AFTER MIDNIGHT. DR. NAM WILL COME BY LATER TO SEE PT AND DISCUSS SURGICAL TREATMENT.
[2020-03-05 09:07] LABS: BARBITURATE, URINE NEGATIVE ng/ml (NEG <=200); BENZODIAZEPINE, URINE NEGATIVE ng/mL (NEG <=200); CANNABINOID, URINE NEGATIVE ng/mL (NEG <=50); COCAINE, URINE NEGATIVE ng/mL (NEG <=300); OPIATE, URINE NEGATIVE ng/mL (NEG <=2000); PHENCYCLIDINE SCREEN,URINE NEGATIVE ng/mL (NEG <=25)
--- NOTE | 2020-03-05 09:14 | NUR ---
PATIENT HAS BEEN SCREENED AND CATEGORIZED HIGH NUTRITION RISK. PATIENT WILL BE SEEN WITHIN 1-2 DAYS OF ADMISSION. 03/05/20-03/06/[address]
--- NOTE | 2020-03-05 10:25 | NUR ---
SWABBED PT FOR COVID-19. DR. FLORES IS IN THE ROOM AND DID A BREAST EXAMINATION. PT STATES THAT BREAST FEELS HEAVY. SAFETY MEASURES IN PLACE AND WILL CONTINUE TO MONITOR.
[2020-03-05] MEDS: LEVOFLOXACIN 750 MG/D5W PREMIX 150 ML IV SCH (12:25)
--- NOTE | 2020-03-05 12:25 | NUR ---
ADMINISTERED MEDICATIONS PER ORDER AND TOLERATED WELL. SAFETY MEASURES IN PLACE AND WILL CONTINUE TO MONITOR.
--- NOTE | 2020-03-05 14:30 | NUR ---
PT ASKED FOR FOOD AT THIS TIME. PHYSICIAN ORDERED REGULAR DIET AND PATIENT WILL BE NPO AT MIDNIGHT. SAFETY MEASURES IN PLACE, NO COMPLAINTS OF PAIN, AND WILL CONTINUE TO MONITOR.
--- NOTE | 2020-03-05 15:00 | NUR ---
PT IS CURRENTLY SITTING IN BED WITH NO SIGNS OF DISTRESS. SAFETY MEASURES IN PLACE AND WILL CONTINUE TO MONITOR.
[2020-03-05 16:00] VITALS: BP 123/89
--- NOTE | 2020-03-05 17:48 | NUR ---
DR. NAM CALLED TO STATE THAT I & D OF LEFT BREAST WILL BE PREFORMED AROUND 9PM [facility]. PT IS AWARE AND SIGNED CONSENT. SAFETY MEASURES IN PLACE AND WILL CONTINUE TO MONITOR.
--- NOTE | 2020-03-05 18:45 | NUR ---
PT IS CURRENTLY SITTING UP IN BED WITH NO SIGNS OF DISTRESS AT THIS TIME. SAFETY MEASURES IN PLACE AND WILL CONTINUITY TO MONITOR. WILL ENDORSE TO SUPERVISOR WOUND NURSE FOR CONTINUITY OF CARE.
[2020-03-05] MEDS ORDERED: METOCLOPRAMIDE 10 MG/2 ML INJ VIAL IVP SCH (19:10)
--- NOTE | 2020-03-05 19:10 | NUR ---
RECEIVED REPORT FROM AM NURSE. PATIENT SITTING DOWN IN BED WATCHING TV. NO DISTRESS NOTED. DENIES ANY PAIN. AAOX4, CALM, COOPERATIVE, SKIN COLOR APPROPRIATE TO ETHNICITY, WARM TO TOUCH. HAS LEFT BREAST ABSCESS WITH INTACT SKIN, AND REDNESS ON SITE. RESPIRATIONS EVEN, UNLABORED, ON ROOM AIR. IV SITE INTACT, PATENT, AND INFUSING IVF PER MD ORDERS. REVIEWED PLAN OF CARE WITH PATIENT. PATIENT VERBALIZED UNDERSTANDING. SAFETY MEASURES IN PLACE, CALL LIGHT WITHIN REACH. WILL CONTINUE TO MONITOR.
[2020-03-05] MEDS ORDERED: BUPIVACAINE-MPF 0.25% 30 ML VIAL INJ ONE (19:17)
--- NOTE | 2020-03-05 19:38 | NUR ---
REGLAN GIVEN PER MD ORDERS BEFORE SURGERY. PATIENT TOLERATED WELL. WILL CONTINUE TO MONITOR.
--- NOTE | 2020-03-05 19:45 | NUR ---
OR NURSES TOOK PATIENT FOR OR I&D OF LEFT BREAST. WILL CONTINUE TO MONITOR WHEN PATIENT RETURNS ON UNIT.
[2020-03-05] MEDS ORDERED: ROCURONIUM 50 MG/5 ML VIAL IV ONE (20:01)
[2020-03-05] MEDS ORDERED: PROPOFOL 200 MG/20 ML VIAL IV ONE (20:01)
[2020-03-05] MEDS ORDERED: SUCCINYLCHOLINE CHLORIDE 200 MG/10 ML VIAL IVP ONE (20:01)
[2020-03-05] MEDS ORDERED: DEXAMETHASONE 4 MG/ML VIAL ONE (20:01)
[2020-03-05] MEDS ORDERED: SUGAMMADEX SODIUM 200 MG/2 ML VIAL IV ONE (20:39)
[2020-03-05] MEDS ORDERED: MORPHINE SULFATE 4 MG/ML SYR IV PRN (20:50)
[2020-03-05] MEDS ORDERED: HYDROmorphone 1 MG/ML AMP IVP PRN ×2 (20:50→21:05)
[2020-03-05] MEDS ORDERED: ONDANSETRON 4 MG/2 ML VIAL IV PRN (20:50)
[2020-03-05] MEDS ORDERED: MEPERIDINE 25 MG/ML SYR ONE (20:56)
[2020-03-05] MEDS ORDERED: ONDANSETRON 4 MG/2 ML VIAL IVP PRN (21:05)
[2020-03-05] MEDS ORDERED: MEPERIDINE 25 MG/ML SYR IVP PRN (21:05)
--- NOTE | 2020-03-05 21:45 | NUR ---
PATIENT BACK FROM OR. NO DISTRESS NOTED. PAIN WITHIN TOLERABLE. VITAL SIGNS WNL. ON ROOM AIR. WILL CONTINUE TO MONITOR.
--- NOTE | 2020-03-05 23:00 | NUR ---
PATIENT LYING DOWN IN BED SLEEPING, AROUSABLE BY VOICE. NO DISTRESS NOTED. PAIN WITHIN TOLERABLE AT THIS TIME. WILL CONTINUE TO MONITOR.
[2020-03-06] VITALS: BP 104/69
[2020-03-06] MEDS: NACL 0.9% 1,000 ML IV SCH ×2 (00:16→04:45)
--- NOTE | 2020-03-06 00:30 | NUR ---
PATIENT AMBULATED TO BATHROOM TO URINATE. PATIENT AMBULATED BACK TO BED SAFELY. WILL CONTINUE TO MONITOR.
--- NOTE | 2020-03-06 01:20 | NUR ---
PATIENT LYING DOWN IN BED SLEEPING, AROUSABLE BY VOICE. NO DISTRESS NOTED. PAIN WITHIN TOLERABLE. WILL CONTINUE TO MONITOR.
--- NOTE | 2020-03-06 03:00 | NUR ---
PATIENT LYING DOWN IN BED SLEEPING, AROUSABLE BY VOICE. CONDITION UNCHANGED. WILL CONTINUE TO MONITOR.
--- NOTE | 2020-03-06 04:45 | NUR ---
PATIENT LYING DOWN IN BED SLEEPING, AROUSABLE BY VOICE. NO DISTRESS NOTED. PAIN WITHIN TOLERABLE. WILL CONTINUE TO MONITOR.
[2020-03-06 06:20] LABS: BASOPHILS % (AUTO) 0.1 % (0.0-2.0); HEMATOCRIT 39.5 % (36-48); HEMOGLOBIN 13.1 g/dL (12.0-16.0); LYMPHOCYTES # (AUTO) 1.3 K/uL (2.5-16.5); LYMPHOCYTES % (AUTO) 10.8 % (20.5-51.1); MEAN CORPUSCULAR HEMOGLOBIN 29 pg (27-31); MEAN CORPUSCULAR HGB CONC 33 g/dL (33-37); MEAN CORPUSCULAR VOLUME 88.1 fL (80-94); MONOCYTES # (AUTO) 0.4 K/uL (0.8-1.0); MONOCYTES % (AUTO) 3.4 % (1.7-9.3); NEUTROPHILS # (AUTO) 10.1 K/uL (1.8-7.7); NEUTROPHILS % (AUTO) 85.7 % (42.2-75.2); PLATELET COUNT (AUTO) 303 K/uL (140-450); RED BLOOD CELL COUNT(AUTO) 4.48 MIL/uL (4.20-5.40); RED CELL DISTRIBUTION WIDTH 13.3 % (11.6-13.7); WHITE BLOOD COUNT (AUTO) 11.9 K/uL (4.8-10.8)
--- NOTE | 2020-03-06 07:15 | NUR ---
GAVE REPORT TO AM SHIFT NURSE FOR CONTINUITY OF CARE. PATIENT IN STABLE CONDITION.
--- NOTE | 2020-03-06 07:17 | NUR ---
RECEIVED REPORT FROM BRAIN WAVE TECHNICIAN NURSE AT BEDSIDE FOR CONTINUITY OF CARE. PATIENT RESTING IN BED, AAOX4. NO DISTRESS NOTED. STATES MILD LEFT BREAST PAIN WITH MOVEMENT, TOLERABLE, REFUSING PAIN MEDS. RESPIRATIONS EVEN, UNLABORED, ON ROOM AIR. IV SITE INTACT, PATENT, AND INFUSING IVF PER MD ORDERS. LEFT BREAST POST I&D, COVERED WITH DRESSING. PT STATES DR. NAM INFORMED PT THAT HE WILL COME CHANGE THE FIRST DRESSING W/ PACKING MATERIAL TODAY. REVIEWED PLAN OF CARE WITH PATIENT. PATIENT VERBALIZED UNDERSTANDING. SAFETY MEASURES IN PLACE, CALL LIGHT WITHIN REACH. WILL CONTINUE TO MONITOR.
--- NOTE | 2020-03-06 07:20 | NUR ---
RECEIVED REPORT FROM DAY SHIFT NURSE. PT RESTING IN BED, AOX4- DUTCH/SOUTH KOREAN SPEAKING, ON ROOM AIR WITH IV SITE LEFT AC #20G RUNNING NS @60ML/HR. S/P LEFT BREAST I&D 03/05 COVERED IN DRESSING AND NOT TO BE DISTURBED UNTIL DR. NAM DOES FIRST DRESSING CHANGE. DISCUSSED PLAN OF CARE AND PT VERBALIZED UNDERSTANDING. CALL LIGHT WITHIN REACH. NO S/S OF RESPIRATORY DISTRESS OR DISCOMFORT NOTED AT THIS TIME. WILL CONTINUE TO MONITOR.
[2020-03-06 07:26] LABS: ANION GAP 17.6 (8-16); CARBON DIOXIDE 20.9 mmol/L (21-32); CREATININE 0.6 mg/dL (0.6-1.3); POTASSIUM 3.5 mmol/L (3.5-5.1)
[2020-03-06 08:00] VITALS: BP 102/70
[2020-03-06] MEDS ORDERED: LACTOBACILLUS RHAMNOSUS GG 1 EACH CAP PO SCH (09:00)
--- NOTE | 2020-03-06 09:00 | NUR ---
PT RESTING IN BED. CALL LIGHT WITHIN REACH. NO S/S OF RESPIRATORY DISTRESS OR DISCOMFORT NOTED AT THIS TIME. WILL CONTINUE TO MONITOR.
[2020-03-06] MEDS ORDERED: LEVO750T2 PO (09:22)
--- NOTE | 2020-03-06 10:01 | NUR ---
DRESSING CHANGE COMPLETED BY DR. NAM FREELANCE PATTERNMAKER. DILAUDID GIVEN FOR PAIN INSTRUCTED BY DR. NAM. PT TOLERATED WELL. CALL LIGHT WITHIN REACH. NO S/S OF RESPIRATORY DISTRESS OR DISCOMFORT NOTED AT THIS TIME. WILL CONTINUE TO MONITOR.
[2020-03-06] MEDS: LEVOFLOXACIN 750 MG/D5W PREMIX 150 ML IV SCH (11:54)
--- NOTE | 2020-03-06 11:54 | NUR ---
SCHEDULED MEDICATION LEVAQUIN GIVEN AND TOLERATED WELL. CALL LIGHT WITHIN REACH. NO S/S OF RESPIRATORY DISTRESS OR DISCOMFORT NOTED AT THIS TIME. WILL CONTINUE TO MONITOR.
--- NOTE | 2020-03-06 13:21 | NUR ---
DISCHARGE PLANNING: RECEIVED AN ORDER FOR HOME FOR WOUND CARE. MET WITH THE PATIENT AT THE BEDSIDE TO DISCUSS DC PLAN AND IS IN AGREEMENT. CONFIRMED WITH ME THE ADDRESS AND PHONE NUMBER ON FILE. CONTACTED PAUL OF [facility] AT [phone] IF THEY ARE ABLE TO HELP WITH MEDICAL INSURANCES, SHE STATED TO FAX THE REFERRAL TO [phone] FOR REVIEW AND WILL CALL ME BACK ONCE THEY ARE ABLE TO ACCEPT. Addendum: 03/06/20 at 1329 by Catherine Lindsay CM REFERRAL SENT TO THE PROVIDED NUMBER. Addendum: 03/07/20 at 1106 by Catherine Lindsay CM LATE ENTRY FOR 03/06/2020: RECEIVED A CALL FROM [facility] STATING THAT THEY ARE NOT ABLE TO ACCEPT REFERRAL DUE TO PATIENT LIVES IN [facility] [place] [place] AND THEY CAN ONLY SERVICE [facility]. DR. KING MADE AWARE. Addendum: 03/07/20 at 1441 by Catherine Lindsay LATE ENTRY FOR TODAY: CONTACTED [facility] FOR [facility]. PER ABDIRASHID OF [facility]/ TO SEND THE REFERRAL AND THEY WILL REVIEW. RECEIVED A MESSAGE FROM [facility] STATING THAT THEY ARE NOT ABLE TO ACCEPT PATIENT DUE TO THE INSURANCE. DR. BELL MADE AWARE. CONTACTED PATIENT AT [phone]. SHE STATED SHE WENT TO SEE THE DOCTOR TODAY AND HAD THE DRESSING CHANGE AND WAS INSTRUCTED AT THE CLINIC TO CHANGE THE DRESSING DAILY. SHE ALSO STATED THAT SHE HAS ANOTHER APPOINTMENT TOMORROW AND WEDNESDAY. I INFORMED HER THAT I WAS NOT ABLE TO FIND A HOME HEALTH BECAUSE OF HER INSURANCE, ABLE TO VERBALIZE UNDERSTANDING BY STATING "IT'S OK, I UNDERSTAND. THANK YOU SO MUCH FOR TRYING."
--- NOTE | 2020-03-06 13:49 | NUR ---
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 PATIENT HAS PMHX OF LEFT BREAST ABSCESS. Admitted From Home Pre-Admission Level Of Functioning Status Independent/Ambulatory Prior Resources/Services Used In Last 12 Months No Prior Resources Used Prior DME No Prior DME Used Living Situation Lives With Family House Patient Had Caregiver No Home Support No Caregiver Issues Financial Issues No Known Financial Issue Factors/Needs No D/C Needs Identified Pt/Rep Participated In Discharge Plan Yes Patient/Family Agress With Discharge Plan Yes Discharge Plan Comments TENTATIVE DISCHARGE PLAN IS FOR PATIENT TO RETURN HOME. NO FURTHER NEEDS IDENTIFIED. DC Plan Status Initiated
--- NOTE | 2020-03-06 14:00 | NUR ---
PT RESTING IN BED. CALL LIGHT WITHIN REACH. NO S/S OF RESPIRATORY DISTRESS OR DISCOMFORT NOTED AT THIS TIME. WILL CONTINUE TO MONITOR.
--- NOTE | 2020-03-06 14:24 | NUR ---
03/06/20 RD INITIAL ASSESSMENT COMPLETED PLEASE REFER TO NUTRITION ASSESSMENT UNDER CARE ACTIVITY FOR ESTIMATED NUTRITIONAL NEEDS. 1. CONTINUE REGULAR DIET TOLERATED 2. RECOMMEND OMI BID 3. RD TO FOLLOW-UP 3-5 DAYS, MODERATE RISK MAE ALMANZA RD
[2020-03-06 15:06] VITALS: BP 102/70
--- NOTE | 2020-03-06 16:00 | NUR ---
PT SIGNED DISCHARGE PAPERWORK.
--- NOTE | 2020-03-06 16:15 | NUR ---
TOOK PT TO FRONT LOBBY VIA WHEELCHAIR. AWAITING PT IN CAR. PT STABLE AT THIS TIME.
== END 2020-03-06 16:15 | disposition home health service (06) | DRG 363 ==
LOC: MED 06:55 → EEVIPCON 07:59 → MTU 07:59
PROVIDERS: ADMIT General Practice; ATTEND General Practice
PROC: 0H9U0ZZ Drainage of Left Breast, Open Approach (ICD-10-PCS; 2020-03-05)
PROC: 0HBU0ZZ Excision of Left Breast, Open Approach (ICD-10-PCS; principal; 2020-03-05 18:50)
DX: N61.1 Abscess of the breast and nipple (principal); E78.5 Hyperlipidemia, unspecified; Z20.828 Contact with and (suspected) exposure to other viral communicable diseases; Z88.0 Allergy status to penicillin
CPT/HCPCS: 36415; 71045; 76641; 80048; 80053; 80305; 81003; 83036; 83605; 83735; 83880; 84100; 84443; 84484; 85025; 85610; 85730; 87040; 87070; 87075; 87081; 87205; 99285; J0330; J1100; J1170; J1956; J2175; J2704; J2765; J3490; J7030; Q0092; U0003-CS